=== PATIENT | female | born 1965 | race Caucasian/White ===

== ENCOUNTER 2017-08-10 15:29 | Outpatient (CLI) | payer OTHER ==
[~2017-08-10 15:29] MED LIST: SYMBICORT 80/10.2 GM IH; VENTOLIN HFA18 GM IH; ZYRTEC10 M3 PO
== END 2017-08-10 15:39 | disposition home or self-care (01) ==
LOC: RAD 15:29
DX: S60.222A Contusion of left hand, initial encounter (principal)

== ENCOUNTER → 2017-08-28 | Emergency (ER) | payer OTHER ==
[~2017-08-28] VITALS: Ht 152.4 cm; Wt 53.5 kg
== END | disposition left against medical advice (07) ==
LOC: ER 17:55
DX: Z53.20 Procedure and treatment not carried out because of patient's decision for unspecified reasons (principal)

== ENCOUNTER → 2018-10-12 | Outpatient (CLI) | payer OTHER | END | disposition home or self-care (01) | LOC: MAMO-SONO 12:46 | DX: N60.11 Diffuse cystic mastopathy of right breast (principal); N60.12 Diffuse cystic mastopathy of left breast; Z12.31 Encounter for screening mammogram for malignant neoplasm of breast ==

== ENCOUNTER 2018-11-29 10:35 | Outpatient (CLI) | payer OTHER | END 2018-11-29 10:46 | disposition home or self-care (01) | LOC: RAD 10:35 | DX: M15.8 Other polyosteoarthritis (principal) ==

== ENCOUNTER → 2019-11-21 | Outpatient (CLI) | payer OTHER | END | disposition home or self-care (01) | LOC: MAMO-SONO 10:37 | PROVIDERS: ATTEND Specialist | DX: Z12.31 Encounter for screening mammogram for malignant neoplasm of breast (principal); N60.11 Diffuse cystic mastopathy of right breast; N60.12 Diffuse cystic mastopathy of left breast ==

== ENCOUNTER 2020-11-12 12:17 | Outpatient (CLI) | payer OTHER | END 2020-11-12 12:24 | disposition home or self-care (01) | LOC: RAD 12:17 | PROVIDERS: ATTEND Internal Medicine Rheumatology | DX: M54.5 Low back pain (principal); M70.62 Trochanteric bursitis, left hip; M47.817 Spondylosis without myelopathy or radiculopathy, lumbosacral region ==

== ENCOUNTER 2020-12-04 07:47 | Outpatient (CLI) | payer OTHER | END 2020-12-04 08:04 | disposition home or self-care (01) | LOC: MAMO-SONO 07:47 | PROVIDERS: ATTEND Specialist | DX: N60.11 Diffuse cystic mastopathy of right breast (principal); N60.12 Diffuse cystic mastopathy of left breast; Z87.898 Personal history of other specified conditions; Z12.31 Encounter for screening mammogram for malignant neoplasm of breast ==

== ENCOUNTER 2021-07-21 07:22 | Outpatient (CLI) | payer OTHER | END 2021-07-21 07:39 | disposition home or self-care (01) | LOC: SONOGRAMA 07:22 | PROVIDERS: ATTEND Internal Medicine Gastroenterology | DX: R10.13 Epigastric pain (principal) ==

== ENCOUNTER 2022-03-05 14:02 | Outpatient (CLI) | payer OTHER | END 2022-03-05 14:16 | disposition home or self-care (01) | LOC: MAMO-SONO 14:02 | PROVIDERS: ATTEND Specialist | DX: N60.11 Diffuse cystic mastopathy of right breast (principal); N60.12 Diffuse cystic mastopathy of left breast; N95.1 Menopausal and female climacteric states ==

== ENCOUNTER 2023-06-16 13:17 | Outpatient (CLI) | payer OTHER | END 2023-06-16 13:24 | disposition home or self-care (01) | LOC: MAMO-SONO 13:17 | PROVIDERS: ATTEND Specialist | DX: N60.12 Diffuse cystic mastopathy of left breast (principal); N60.11 Diffuse cystic mastopathy of right breast; Z12.31 Encounter for screening mammogram for malignant neoplasm of breast ==

== ENCOUNTER 2024-05-16 11:32 | Outpatient (CLI) | payer OTHER | END 2024-05-16 11:41 | disposition home or self-care (01) | LOC: RAD 11:32 | PROVIDERS: ATTEND Podiatrist Foot Surgery | DX: M20.41 Other hammer toe(s) (acquired), right foot (principal); M20.42 Other hammer toe(s) (acquired), left foot ==

== ENCOUNTER 2024-06-19 09:38 | Outpatient (CLI) | payer OTHER | END 2024-06-19 09:40 | disposition home or self-care (01) | LOC: RAD 09:38 | PROVIDERS: ATTEND Podiatrist Foot Surgery | DX: M20.41 Other hammer toe(s) (acquired), right foot (principal); M20.42 Other hammer toe(s) (acquired), left foot ==